=== PATIENT | male | born 1975 | race African-American/Black ===

== ENCOUNTER 2024-09-06 15:47 | Emergency (ER) | payer MEDICAID ==
[~2024-09-06] VITALS: Ht 170.2 cm; Wt 75.0 kg
[2024-09-06 15:59] VITALS: O2SAT 99
[2024-09-06] MEDS ORDERED: INSULIN LISPRO 100 UNITS/ML SUBCUT ONE (17:15)
[2024-09-06 18:38] LABS: CHLORIDE 98 mEq/L (98-107); POTASSIUM 4.1 mEq/L (3.5-5.1); SODIUM 129 mEq/L (136-145)
[2024-09-06 18:39] LABS: CALCIUM 9.5 mg/dL (8.7-10.4); CARBON DIOXIDE 24 mEq/L (21-32)
[2024-09-06 18:44] LABS: BASOPHILS % 0.7 % (0.0-2.0); EOSINOPHILS % 3.5 % (0.0-5.0); HEMOGLOBIN. 14.3 g/dL (14.0-18.0); LYMPHOCYTES % 52.6 % (20.0-50.0); MEAN CORPUSCULAR HEMOGLOBIN 26.5 pg (28.0-32.0); MEAN CORPUSCULAR HGB CONC 33.3 g/dL (31.0-37.0); MEAN CORPUSCULAR VOLUME 79.7 fL (80.0-94.0); MONOCYTES % 4.8 % (2.0-8.0); NEUTROPHILS % 38.4 % (40.0-76.0); RED CELL DISTRIBUTION WIDTH 14.4 % (11.6-14.6); UREA NITROGEN BLOOD 11 mg/dL (9-23); WHITE BLOOD COUNT 4.7 x1000/uL (4.5-11.0)
[2024-09-06 18:45] LABS: DIFFERENTIAL COMMENT 1
[2024-09-06 18:50] LABS: GLUCOSE 352 mg/dL (70-105)
[2024-09-06 18:51] LABS: TROPONIN I HIGH SENSITIVITY < 4 ng/L (3.0-53)
[2024-09-06 18:52] LABS: BETA HYDROXYBUTYRATE 0.4 mMol/L (0.0-0.3)
[2024-09-06 18:59] LABS: MEAN PLATELET VOLUME 8.2 fl (7.4-10.4); PLATELET 260 x1000/uL (130-400)
[2024-09-06] MEDS: INSULIN LISPRO 100 UNITS/ML SUBCUT NR (19:51)
[2024-09-06] MEDS ORDERED: INSU100I24 SQ (21:10)
[2024-09-06] MEDS ORDERED: ATOR40TA70 MT (21:11)
[2024-09-06] MEDS ORDERED: METF-416 MT (21:11)
[2024-09-06 21:57] VITALS: BP 130/74; PULSE 91; RESP 18; TEMP 36.83628; O2SAT 99
== END 2024-09-06 21:58 | disposition home or self-care (01) ==
LOC: ER 15:47
DX: E11.65 Type 2 diabetes mellitus with hyperglycemia (principal); E78.5 Hyperlipidemia, unspecified; I10 Essential (primary) hypertension; Z79.84 Long term (current) use of oral hypoglycemic drugs; Z79.899 Other long term (current) drug therapy; Z79.4 Long term (current) use of insulin
CPT/HCPCS: 99285; 71045; 80048; 82010; 82962; 83880; 83735; 83930; 85025; 84484; 36415; 93005; 96372; J1815